=== PATIENT | male | born 1955 | race Hispanic/Latino ===

== ENCOUNTER 2019-07-15 17:02 | Observation (INO) | payer OTHER, SELFPAY ==
[2019-07-15 17:26] LABS: BASOPHILS % (AUTO) 0.8 % (0.0-5.0); EOSINOPHILS % (AUTO) 2.6 % (0.0-8.0); HEMATOCRIT 32.3 % (42-54); LYMPHOCYTES % (AUTO) 43.5 % (21.0-51.0); MEAN CORPUSCULAR HEMOGLOBIN 27.7 pg (27.0-33.0); MEAN CORPUSCULAR HGB CONC 34.1 g/dL (32.0-36.0); MEAN CORPUSCULAR VOLUME 81.4 fL (79-99); MONOCYTES % (AUTO) 7.7 % (3.0-13.0); NEUTROPHILS % (AUTO) 45.2 % (40.0-77.0); PLATELET COUNT (AUTO) 195 K/uL (130-400); RED BLOOD CELL COUNT(AUTO) 3.97 MIL/uL (4.50-6.20); RED CELL DISTRIBUTION WIDTH 13.6 % (11.0-15.5)
[2019-07-15] MEDS ORDERED: ASPIRIN 81MG TAB.CHEW ONE (17:26)
[2019-07-15] MEDS ORDERED: NITROGLYCERIN 0.4 MG SL TAB SL ONE (17:27)
[2019-07-15 17:42] LABS: CREATININE 1.1 mg/dL (0.5-1.5); POTASSIUM 3.6 mmol/L (3.5-5.1)
[2019-07-15 17:46] LABS: ALBUMIN 3.6 g/dL (3.5-5.0); BILIRUBIN,TOTAL 0.3 mg/dL (0.2-1.0); TOTAL PROTEIN, SERUM 7.7 g/dL (6.0-8.3)
[2019-07-15 18:02] LABS: B-TYPE NATRIURETIC PEPTIDE 97 pg/mL (0-100)
[2019-07-15] MEDS ORDERED: HYDRALAZINE HCL 20 MG/ML VIAL IV PRN (19:15)
[2019-07-15] MEDS ORDERED: NITROGLYCERIN 0.4 MG SL TAB SL PRN (19:15)
[2019-07-15] MEDS ORDERED: ACETAMINOPHEN 325 MG TAB PO PRN ×2 (19:15)
[2019-07-15] MEDS ORDERED: ONDANSETRON HCL 4 MG/2 ML VIAL IV PRN (19:15)
[2019-07-15 19:38] LABS: HEMOGLOBIN A1C 5.8 % (4.0-6.0)
[2019-07-15 19:46] LABS: THYROID STIMULATING HORMONE 2.78 uIU/mL (0.36-3.74)
[2019-07-15] MEDS ORDERED: METOPROLOL TARTRATE 25 MG TAB ONE (20:10)
[2019-07-15] MEDS ORDERED: FAMOTIDINE 20MG TAB 20 MG TAB ONE (20:10)
[2019-07-15 20:37] LABS: APPEARANCE,URINE Clear (CLEAR); BILIRUBIN,URINE Negative (NEGATIVE); COLOR,URINE Yellow (YELLOW); GLUCOSE, URINE (UA) Negative (NEGATIVE); KETONES,URINE Negative (NEGATIVE); LEUKOCYTE ESTERASE ,URINE Negative (NEGATIVE); NITRATE,URINE Negative (NEGATIVE); OCCULT BLOOD,URINE Small (NEGATIVE); PH,URINE 6.5 (5.0-8.0); PROTEIN,URINE Negative (NEGATIVE); UROBILINOGEN,URINE 0.2 mg/dL (0.2-1.0)
[2019-07-15] MEDS ORDERED: FAMOTIDINE 20MG TAB 20 MG TAB PO SCH (21:00)
[2019-07-15] MEDS ORDERED: METOPROLOL TARTRATE 25 MG TAB PO SCH (21:00)
[2019-07-15 21:30] LABS: BACTERIA,URINE Rare /HPF (None Seen); MUCUS,URINE Few LPF (None Seen); SQUAMOUS EPITHELIAL CELL,UR 0-2 /HPF (0-2)
[2019-07-15] MEDS ORDERED: HYDRALAZINE HCL 20 MG/ML VIAL ONE (22:29)
[2019-07-16] MEDS ORDERED: AMLODIPINE BESYLATE 5 MG TAB PO SCH (00:30)
[2019-07-16] MEDS ORDERED: AMLODIPINE BESYLATE 5 MG TAB ONE ×2 (00:39→08:23)
[2019-07-16 07:13] LABS: BASOPHILS % (AUTO) 0.9 % (0.0-5.0); EOSINOPHILS % (AUTO) 2.6 % (0.0-8.0); HEMATOCRIT 34.7 % (42-54); LYMPHOCYTES % (AUTO) 39.5 % (21.0-51.0); MEAN CORPUSCULAR HEMOGLOBIN 27.5 pg (27.0-33.0); MEAN CORPUSCULAR HGB CONC 34.3 g/dL (32.0-36.0); MEAN CORPUSCULAR VOLUME 80.3 fL (79-99); MONOCYTES % (AUTO) 6.5 % (3.0-13.0); NEUTROPHILS % (AUTO) 50.3 % (40.0-77.0); PLATELET COUNT (AUTO) 196 K/uL (130-400); RED BLOOD CELL COUNT(AUTO) 4.32 MIL/uL (4.50-6.20); RED CELL DISTRIBUTION WIDTH 13.2 % (11.0-15.5); WHITE BLOOD COUNT (AUTO) 5.8 K/uL (4.8-10.8)
[2019-07-16 07:25] LABS: POTASSIUM 3.6 mmol/L (3.5-5.1)
[2019-07-16] MEDS ORDERED: ASPIRIN 81MG TAB.CHEW ONE (08:23)
[2019-07-16] MEDS ORDERED: FAMOTIDINE 20MG TAB 20 MG TAB ONE (08:23)
[2019-07-16] MEDS ORDERED: METOPROLOL TARTRATE 25 MG TAB ONE (08:24)
[2019-07-16] MEDS ORDERED: ENOXAPARIN SODIUM 40 MG/0.4 ML SYRINGE SQ ONE (08:24)
[2019-07-16] MEDS ORDERED: ASPIRIN 325 MG TABLET PO SCH (09:00)
[2019-07-16] MEDS ORDERED: ENOXAPARIN SODIUM 40 MG/0.4 ML SYRINGE SQ SCH (09:00)
[2019-07-16] MEDS ORDERED: LISINOPRIL 10 MG TABLET PO SCH (09:00)
--- NOTE | 2019-07-16 11:18 | NUR ---
INITIAL SW met with patient. Patient lives with spouse, Divine Titus, [phone]. No home services or DME. Patient is able to complete ADL's independently and drives. No PCP. Pharmacy is [facility] located in [place]. DCP is home. Patient has no insurance or benefits. He is a [place] citizen and has worked in the [place]. Patient was provided with community resources for post hospitalization follow up. Patient was also provided with Good RX card for prescriptions and educated on [employer] $4 medication program and [facility] $5 medication program. Patient is being assisted by [employer] for financial matters. Addendum: 07/16/19 at 1121 by MAI LEE Amended: Links added.
[2019-07-16] MEDS ORDERED: LISINOPRIL 5 MG TABLET PO SCH (17:30)
== END 2019-07-16 18:00 | disposition home or self-care (01) ==
LOC: EDH 17:02 → EDHIP 17:03
PROVIDERS: ADMIT Internal Medicine; ATTEND Internal Medicine
DX: R07.89 Other chest pain (principal); I16.0 Hypertensive urgency; I10 Essential (primary) hypertension; Z91.14 Patient's other noncompliance with medication regimen; Z79.899 Other long term (current) drug therapy
CPT/HCPCS: 36415 ×2; 71045; 80048; 80053; 80061; 81001; 83036; 83690; 83880; 84443; 84484 ×3; 85025 ×2; 93005; 99285; G0378 ×23; J0360; J1650